=== PATIENT | female | born 1990 | race African-American/Black ===

== ENCOUNTER 2016-12-25 09:05 | Emergency (ER) | payer MEDICAID ==
[~2016-12-25] VITALS: Ht 160 cm; Wt 66.0 kg
[2016-12-25] MEDS ORDERED: PNV1TABL76 PO (09:30)
[2016-12-25 10:00] VITALS: BP 105/72
[2016-12-25] MEDS ORDERED: AZITHROMYCIN 500 MG TABLET PO ONE (10:30)
[2016-12-25] MEDS ORDERED: ONDANSETRON HCL 4MG TABLET PO ONE (10:30)
[2016-12-25 10:34] LABS: CLARITY URINE CLOUDY (CLEAR); COLOR URINE YELLOW (YELLOW); GLUCOSE URINE NEGATIVE (NEGATIVE); KETONES URINE NEGATIVE (NEGATIVE); LEUKOCYTE ESTERASE URINE 2+ (NEGATIVE); NITRITE URINE NEGATIVE (NEGATIVE); OCCULT BLOOD URINE NEGATIVE (NEGATIVE); PH URINE 8.5 (4.5-8.0); PROTEIN URINE NEGATIVE (NEGATIVE); SPECIFIC GRAVITY URINE 1.015 (1.005-1.030)
[2016-12-25] MEDS ORDERED: ONDANSETRON HCL 4MG/2ML VIAL IM STA (11:30)
[2016-12-25] MEDS ORDERED: ACETAMINOPHEN 500MG TABLET PO ONE (11:30)
== END 2016-12-25 11:53 | disposition home or self-care (01) ==
LOC: ER 09:05
DX: Z20.2 Contact with and (suspected) exposure to infections with a predominantly sexual mode of transmission (principal); O23.22 Infections of urethra in pregnancy, second trimester; Z3A.18 18 weeks gestation of pregnancy; Z88.0 Allergy status to penicillin
CPT/HCPCS: 81001; 81025; 99283; Q0162